=== PATIENT | female | born 1950 | race Caucasian/White ===

== ENCOUNTER → 2020-03-09 10:17 | Outpatient (BNVA) | payer OTHER, MEDICARE, SELFPAY | PROVIDERS: PCP Internal Medicine; Referring Provider Internal Medicine; Visit Provider Physician Assistant | DX: Z01.818 Encounter for other preprocedural examination (principal) | CPT/HCPCS: 99203 ==

== ENCOUNTER 2021-11-30 16:09 | Outpatient (REF) | payer MEDICARE, MEDICAID, SELFPAY ==
--- NOTE | ~2021-11-30 | US_ITS ---
EXAMINATION: US VENOUS ULTRASOUND WITH DOPPLER LOWER EXTREMITY, LEFT CLINICAL INFORMATION: Swelling COMPARISON: None TECHNIQUE: Ultrasound of the deep veins is performed from the hip to the calf with compression sonography and color and pulse Doppler assessment. Spectral analysis with color-flow imaging is performed. FINDINGS: There is normal venous compression and respiratory variation and augmented flow. The visualized common femoral vein, superficial femoral vein, profunda femoral vein, popliteal vein are patent. The calf veins are not well visualized. There is no Barnett's cyst. US/US venous duplex LE LT IMPRESSION: No evidence of DVT. Calf veins not well visualized.
== END 2021-11-30 16:10 | disposition home or self-care (01) ==
LOC: HO.US 16:09
PROVIDERS: PCP Internal Medicine; Visit Provider Internal Medicine
DX: R60.0 Localized edema (principal)
CPT/HCPCS: 93971

== ENCOUNTER → 2022-08-14 09:02 | Outpatient (BNVA) | payer MEDICARE, MEDICAID, SELFPAY | PROVIDERS: PCP Internal Medicine; Visit Provider Internal Medicine Rheumatology | DX: M79.89 Other specified soft tissue disorders (principal); M17.0 Bilateral primary osteoarthritis of knee; I87.2 Venous insufficiency (chronic) (peripheral) | CPT/HCPCS: 99202 ==

== ENCOUNTER 2022-09-26 13:23 | Outpatient (REF) | payer MEDICARE, MEDICAID, SELFPAY ==
--- NOTE | ~2022-09-26 | US_ITS ---
EXAMINATION: US VENOUS WITH DOPPLER UPPER EXTREMITY, LEFT CLINICAL INFORMATION: Edema and swelling. COMPARISON: None available. TECHNIQUE: Ultrasound of the upper extremity is performed using compression sonography and color and pulse Doppler flow with assessment of augmentation of flow. There is also imaging and Doppler assessment of the jugular and subclavian veins. Spectral analysis with color-flow imaging is performed. FINDINGS: Respiratory variation, normal compression, and augmented flow are noted throughout the upper extremity including the axillary, brachial, cubital, and radial and ulnar veins. There is normal flow in the internal jugular and subclavian veins. There is no visible deep or superficial thrombophlebitis. If the patient's symptoms progress, a followup ultrasound in 5 -7 days might be of value to exclude proximal propagation from a nonvisualized distal arm vein. US/US venous duplex UE LT IMPRESSION: No DVT demonstrated in the left upper extremity
== END 2022-09-26 13:24 | disposition home or self-care (01) ==
LOC: HO.US 13:23
PROVIDERS: PCP Family Medicine; Visit Provider Family Medicine
DX: R60.0 Localized edema (principal); M79.602 Pain in left arm; I89.0 Lymphedema, not elsewhere classified
CPT/HCPCS: 93971; 99202

== ENCOUNTER 2023-02-05 | Outpatient (REF) | payer MEDICARE, MEDICAID, SELFPAY | END 2023-02-05 00:01 | disposition home or self-care (01) | LOC: HO.HHCLNP | PROVIDERS: Visit Provider Family Medicine | DX: N30.00 Acute cystitis without hematuria (principal) | CPT/HCPCS: 87086; 87088; 87186 ==

== ENCOUNTER 2023-02-12 12:54 | Outpatient (REF) | payer MEDICARE, MEDICAID, SELFPAY | END 2023-02-12 12:55 | disposition home or self-care (01) | LOC: HO.HHCLNP 12:54 | PROVIDERS: Visit Provider Internal Medicine | DX: R39.9 Unspecified symptoms and signs involving the genitourinary system (principal) | CPT/HCPCS: 87086 ==

== ENCOUNTER 2023-02-19 | Outpatient (REF) | payer MEDICARE, MEDICAID, SELFPAY | END 2023-02-19 00:01 | disposition home or self-care (01) | LOC: HO.LNP | PROVIDERS: Visit Provider Internal Medicine | DX: R39.9 Unspecified symptoms and signs involving the genitourinary system (principal) | CPT/HCPCS: 87086; 87088; 87186 ==

== ENCOUNTER 2023-09-19 13:02 | Outpatient (REF) | payer MEDICARE, MEDICAID, SELFPAY ==
[2023-09-19 16:11] LABS: Hematocrit 40.4 % (37.0-47.0); Hemoglobin 12.7 g/dl (12.0-16.0); Mean Corpuscular HGB Conc 31.4 g/dl (31.0-35.0); Mean Corpuscular Hemoglobin 27.7 pg (27.0-33.0); Platelet Count 248 X10*3/uL (160-400); Red Blood Count 4.59 X10*6/uL (4.20-5.50); Red Cell Distribution Width 15.2 % (11.0-16.0); White Blood Count 10.4 X10*3/uL (4.8-10.8)
[2023-09-19 16:26] LABS: Estimated Average Glucose 123 mg/dL; Hemoglobin A1c % 5.9 % (<6.0)
[2023-09-19 16:29] LABS: Alanine Aminotransferase 16 U/L (0-31); Albumin Level 3.9 g/dL (3.5-5.0); Alkaline Phosphatase 94 U/L (39-117); Anion Gap 13 (12-20); Aspartate Amino Transferase 19 U/L (5-31); Bilirubin Direct 0.2 mg/dL (0.0-0.5); Bilirubin Total 0.5 mg/dL (0.0-1.0); Blood Urea Nitrogen 18 mg/dL (9-16); Calcium 10.4 mg/dL (8.4-10.2); Carbon Dioxide 28 mmol/L (22-29); Chloride 106 mmol/L (96-108); Cholesterol 144 mg/dL (<200); Estimated Glomerular Filt Rate 41; Glucose Random 99 mg/dL (60-115); HDL Cholesterol 37 mg/dL (>40); LDL Cholesterol Calculated 81 mg/dL (<100); Potassium 4.9 mmol/L (3.3-5.1); Sodium 142 mmol/L (135-145); Total Protein 7.5 g/dL (6.5-8.0); Triglycerides 133 mg/dL (<150)
[2023-09-19 16:47] LABS: Free T4 (Free Thyroxine) 0.84 ng/dL (0.71-1.85); Thyroid Stimulating Hormone 4.74 uIU/mL (0.32-4.0); Vitamin D 25-OH Total 11.5 ng/mL (>30)
[2023-09-20 05:38] LABS: HBS Num1 3.74 mIU/mL (0-7.99); HBsAGNum1 0.32 S/CO (0.00-0.99); HIV AB/AG Nonreactive (Nonreactive); HIV Num 1 0.05 S/CO (0.00-0.99); Hepatitis B Surface Antigen Negative (Negative); ~HepC Num1 0.19 S/CO (0.00-0.79); ~Hepatitis B Surface Antibody NONREACTIVE (Nonreactive); ~Hepatitis C Antibody Nonreactive (Nonreactive)
[2023-09-20 05:44] LABS: Hepatitis A Antibody IgG REACTIVE (Nonreactive); ~Hepatitis A Antibody IgG 9.92 S/CO (0.00-0.99)
[2023-09-20 13:43] LABS: RPR Rapid Plasma Reagin NON-REACTIVE (NON-REACTIVE)
== END 2023-09-19 13:03 | disposition home or self-care (01) ==
LOC: HO.HHCL 13:02
PROVIDERS: Visit Provider Family Medicine
DX: I10 Essential (primary) hypertension (principal); E78.49 Other hyperlipidemia; Z11.3 Encounter for screening for infections with a predominantly sexual mode of transmission; N18.30 Chronic kidney disease, stage 3 unspecified; R79.9 Abnormal finding of blood chemistry, unspecified; Z11.59 Encounter for screening for other viral diseases; Z72.89 Other problems related to lifestyle
CPT/HCPCS: 36415; 80048; 80061; 80076; 82306; 83036; 84439; 84443; 85027; 86592; 86706; 86708; 86803; 87086; 87340; 87389

== ENCOUNTER 2023-09-26 08:38 | Outpatient (REF) | payer MEDICARE, MEDICAID, SELFPAY ==
[2023-09-26 12:01] LABS: Appearance Urine Cloudy; Color Urine Yellow; Glucose Urine UA Negative (Negative); Leukocyte Esterase Urine Large (3+) (Negative); Nitrite Urine Negative (Negative); UMIC TRIGGER UACC YES; Urine Blood Small (1+) (Negative); Urine Ketones Negative (Negative); Urine Protein Negative (Neg-Trace)
[2023-09-26 12:22] LABS: Bacteria Urine 2+ (None Seen); Hyaline Casts Urine 0-2 /LPF (0-2); RBC Urine 0-2 /HPF (0-2); Squamous Epithelial Cell Urine 0-2 /HPF (0-2); UACC Culture Trigger YES; WBC Urine 21-50 /HPF (0-5)
[2023-09-26 12:23] LABS: Anion Gap 13 (12-20); Blood Urea Nitrogen 12 mg/dL (9-16); Calcium 9.7 mg/dL (8.4-10.2); Carbon Dioxide 24 mmol/L (22-29); Chloride 108 mmol/L (96-108); Estimated Glomerular Filt Rate 55; Glucose Random 101 mg/dL (60-115); Potassium 4.2 mmol/L (3.3-5.1); Sodium 141 mmol/L (135-145)
[2023-09-26 12:46] LABS: Free T4 (Free Thyroxine) 0.89 ng/dL (0.71-1.85); Thyroid Stimulating Hormone 4.58 uIU/mL (0.32-4.0)
== END 2023-09-26 08:39 | disposition home or self-care (01) ==
LOC: HO.HHCL 08:38
PROVIDERS: Visit Provider Family Medicine
DX: I10 Essential (primary) hypertension (principal)
CPT/HCPCS: 36415; 80048; 81001; 81003; 84439; 84443; 87086; 87088; 87186

== ENCOUNTER 2024-01-17 17:49 | Outpatient (REF) | payer MEDICARE, MEDICAID, SELFPAY ==
[2024-01-17 18:14] LABS: Appearance Urine Turbid; Color Urine Yellow; Glucose Urine UA Negative (Negative); Leukocyte Esterase Urine Large (3+) (Negative); Nitrite Urine Positive (Negative); PH 6.5 (5.0-9.0); UMIC TRIGGER UACC YES; Urine Blood Trace (Negative); Urine Ketones Negative (Negative); Urine Protein Trace mg/dL (Neg-Trace)
[2024-01-17 18:20] LABS: Bacteria Urine 2+ (None Seen); Hyaline Casts Urine 0-2 /LPF (0-2); Squamous Epithelial Cell Urine >20 /HPF (0-2); UACC Culture Trigger YES; WBC Urine >50 /HPF (0-5)
== END 2024-01-17 17:50 | disposition home or self-care (01) ==
LOC: HO.HHCLNP 17:49
PROVIDERS: Visit Provider Student in an Organized Health Care Education/Training Program
DX: R39.9 Unspecified symptoms and signs involving the genitourinary system (principal)
CPT/HCPCS: 81001; 87086; 87088; 87186

== ENCOUNTER 2024-02-13 11:38 | Outpatient (REF) | payer MEDICARE, MEDICAID, SELFPAY ==
[2024-02-13 14:07] LABS: Anion Gap 14 (12-20); Blood Urea Nitrogen 17 mg/dL (9-16); Calcium 11.1 mg/dL (8.4-10.2); Carbon Dioxide 25 mmol/L (22-29); Chloride 107 mmol/L (96-108); Estimated Glomerular Filt Rate 40; Glucose Random 111 mg/dL (60-115); Sodium 142 mmol/L (135-145)
== END 2024-02-13 11:39 | disposition home or self-care (01) ==
LOC: HO.HHCL 11:38
PROVIDERS: Visit Provider Internal Medicine
DX: N39.0 Urinary tract infection, site not specified (principal); E83.52 Hypercalcemia
CPT/HCPCS: 36415; 80048; 87086; 87088; 87186

== ENCOUNTER 2025-01-05 10:00 | Outpatient (REF) | payer MEDICARE, MEDICAID, SELFPAY ==
--- OUTSIDE RECORDS SUMMARY | 2025-01-05 16:35 | XMS_ITS | Clinical Summary ---
Author Organization [facility] Address [address] [address] Phone Care Team Providers Care Spout Tender Name Role Phone Vaibhav Sandy Primary Care Provider Allergies Active Allergy Reactions Criticality Noted Date Comments Bupropion 07/24/2022 Other reaction(s): Irritable Other reaction(s): Irritable Penicillins 04/10/2016 STates took last time for UTI and did not have a reaction. Sulfa (Sulfonamide Antibiotics) 07/24/2022 Medications triamcinolone acetonide 0.05 % Oint Apply topically every 12 (twelve) hours. 2 Active triamcinolone acetonide 0.1 % cream APPLY A THIN LAYER TO AFFECTED AREA(S) EVERY DAY FOR UP TO 1-2 WEEKS 2 Active traMADoL (ULTRAM) 50 mg tablet TAKE 1 TABLET BY MOUTH EVERY TWELVE HOURS NEEDED FOR SEVERE PAIN 3 Active tiZANidine (ZANAFLEX) 2 MG tablet TAKE 1 TABLET BY MOUTH EVERY 8 HOURS NEEDED FOR MUSCLE SPASMS DO NOT EXCEED 3 TABLETS IN 24 HOURS 3 Active sulfamethoxazol e-trimethoprim (BACTRIM DS) 800-160 mg per tablet Take 1 tablet by mouth 2 (two) times a day. 3 Active sucralfate (CARAFATE) 1 gram tablet TAKE 1 TABLET BY MOUTH FOUR TIMES DAILY BEFORE BREAKFAST, BEFORE LUNCH, BEFORE SUPPER, AND AT BEDTIME. 3 Active simethicone (MYLICON) 80 mg chewable tablet Take 80 mg by mouth 3 (three) times a day as needed. Active polyethylene glycol 3350 (MIRALAX ORAL) Take 17 g by mouth. 3 Active nystatin (NYSTOP) powder Apply topically. Active metoprolol succinate (TOPROL-XL) 50 MG 24 hr tablet Take 1 tablet by mouth daily. 3 Active amLODIPine (NORVASC) 5 MG tablet Take 5 mg by mouth. 3 Active atorvastatin (LIPITOR) 80 MG tablet Take 80 mg by mouth nightly at bedtime. 3 Active atorvastatin (LIPITOR) 80 MG tablet Take 1 tablet by mouth nightly at bedtime. 3 Active cyanocobalamin, vitamin B-12, 1000 MCG tablet Take 1 tablet by mouth. 2 Active econazole nitrate 1 % cream Apply topically every 12 (twelve) hours. 2 Active fluocinolone (DERMA-SMOOTHE) 0.01 % external oil Apply topically. 2 Active ketoconazole (NIZORAL) 2 % shampoo 2 Active gabapentin (NEURONTIN) 300 MG capsule Take 300 mg by mouth 3 (three) times a day. 3 Active lisinopril (PRINIVIL,ZESTR IL) 10 MG tablet Take 10 mg by mouth every morning. 3 Active lisinopril (PRINIVIL,ZESTR IL) 10 MG tablet Take 10 mg by mouth. 3 Active levoFLOXacin (LEVAQUIN) 500 MG tablet Take 1 tablet (500 mg total) by mouth daily. 3 tablet 4 Active Additional Information Patient not taking.Reported on 01/09/2024 levothyroxine (SYNTHROID,LEVO THROID) 25 MCG tablet Take 25 mcg by mouth. 4 Active rosuvastatin (CRESTOR) 40 MG tablet Take 40 mg by mouth daily. Active naloxone (NARCAN) 4 mg/actuation nasal spray 4 mg by Nasal route. 4 Active Active Problems Problem Noted Date Diagnosed Date Severe obesity 06/15/2023 History of osteomyelitis 09/26/2022 Psoriasis 08/15/2022 Osteoarthritis 08/15/2022 Obesity (BMI 30-39.9) 08/15/2022 Nephrolithiasis 08/15/2022 Hyperlipidemia 07/20/2022 Prediabetes 07/11/2018 Stage 3 chronic kidney disease 07/11/2018 Essential hypertension 03/07/2017 Chronic pain disorder 03/07/2017 History of depression 07/06/2010 Venous insufficiency (chronic) (peripheral) 05/2000 Immunizations Immunization Administration Dates Next Due DT 06/06/2010 INFLUENZA, SPLIT VIRUS, TRIVALENT PF ,03/02/2018,03/06/2015,04/03 INFLUENZA, SPLIT VIRUS, TRIV ALENT W/ PRESERVATIVE IM 04/13/2021,02/14/2020,02/25/2019,03/02,02/06/2017,04/10/2016,03/06/2015 ,04/03/2014,05/25/2013,02/06/2012,01/2012,06/06/2010,06/06/2010 Influenza High-Dose Trivalen t Preservative Free IM 02/25/2019 Influenza Quadrivalent Adjuv anted Preservative Free IM 04/13/2021 Influenza Quadrivalent MDCK Preservative Free IM 02/06/2017 Influenza Quadrivalent w/ Pr eservative IM 04/10/2016 Influenza, whole 05/06/2007 Pneumococcal conjugate PCV13 02/14/2020 Pneumococcal polysaccharide PPSV23 04/13/2021 Tdap 03/10/2015 Zoster live 12/16/2012 Social History Tobacco Use Types Packs/Day Years Used Date Smoking Tobacco: Never Smokeless Tobacco: Never Tobacco Cessation:Counseling Given: Not Answered Education Answer Date Recorded Are you interested in more education? Not on lola e 03/19/2023 Are you concerned about learning? Not on file 03/19/2023 No 03/19/2023 No 03/19/2023 Digital Access Answer Date Recorded No 03/19/2023 No 03/19/2023 Reliable internet access at home? Not on file 03/19/2023 Device with a working camera? Not on file Comments Unknown Sex and Gender Information Value Date Recorded Sex Assigned at Not on file Legal Sex Female 10:00 PM EDT Gender Identity Not on file Sexual Orientation Not on file Last Filed Vital Signs Vital Sign Reading Time Taken Comments Blood Pressure 176/72 01/09/2024 1:24 PM EDT Pulse 53 01/09/2024 1:24 PM EDT Temperature 36.6 C (97.8 F) 01/09/2024 1:24 PM EDT Respiratory Rate 18 01/09/2024 1:24 PM EDT Oxygen Saturation 97% 01/09/2024 1:24 PM EDT Inhaled Oxygen Concentration - - Weight 113.4 kg (250 lb) 06/15/2023 9:06 AM EST per pt Height - - Body Mass Index - - Plan of Treatment Health Maintenance Due Date Last Done Comments CREATININE LEVEL 1951 POTASSIUM LEVEL 1951 DEPRESSION SCREENING 1963 HEPATITIS C SCREENING 1969 MAMMOGRAM 1991 COLOGUARD 1996 COLONOSCOPY 1996 COLORECTAL CANCER SCREENING 1996 FIT TEST 1996 FOBT 1996 SIGMOIDOSCOPY 1996 VIRTUAL COLONOSCOPY 1996 ZOSTER VACCINES (2 of 3) 02/10/2013 12/16/2012 OSTEOPOROSIS SCREENING INITI AL (ONE-TIME) 2016 COVID-19 VACCINE (3 - 2023-2 5 season) 2024 05/27/2021, 08/11/2020 BLOOD PRESSURE 07/11/2024 01/09/2024 Adult Td,Tdap Booster 03/10/2025 03/10/2015 RSV VACCINE (1 - 1-dose 75+ series) 2026 LIPID PANEL 09/18/2028 09/19/2023 PNEUMOCOCCAL VACCINES (50+ years) Completed 04/13/2021, 02/14/2020 SMOKING STATUS SCREENING (On ce After 26 Yrs) Completed 06/15/2023 HEPATITIS A VACCINES Aged Out No long er eligible based on patient's age to complete this topic HIB VACCINES Aged Out No longer eligi ble based on patient's age to complete this topic MENINGOCOCCAL VACCINES (ACWY) Aged Out No longer eligible based on patient's age to complete this topic MENINGOCOCCAL VACCINES (B) Aged Out N o longer eligible based on patient's age to complete this topic Medical Devices Not on file Insurance [id number] [place] [phone] MEDICARE PART A & [place]ALTH MEDICARE PART A & [place] MED[place] PART A & B MEDICARE PART A & B HEALTH Care Teams Spout Tender Relationship Specialty Start Date End Date Sandy Esposito DO [address] [place] [phone] PCP - General Family Medicine 03/19/23 Additional Source Comments The information contained in this document represents components of the legal health record. It is not the complete legal health record.[facility]
--- OUTSIDE RECORDS SUMMARY | 2025-01-05 16:35 | XMS_ITS | Encounter Summary ---
Author Organization [employer] Address [address] [facility] 7[address] [place] [address] Care Team Providers Care Yarn Spinner Name Role Phone Cindy Cabrera Primary Care Provider [phone] Sandy Esposito DO Primary Care Provider [phone] Reason for Visit * Reason Comments Med Refill Encounter Details Date Type Department Care Team (Late Contact Info) Description 06/18/2022 Telephone [facility] [address] [place] [phone] [place] [facility] [address] [place], [place] [phone] Med Refill Social History Tobacco Use Types Packs/Day Years Used Date Smoking Tobacco: Never Assessed Comments Unknown Sex and Gender Information Value Date Recorded Sex Assigned at Female 03/27/2022 10:30 AM EDT Legal Sex Female 10:30 AM EDT Gender Identity Female 03/27/2022 10:30 AM EDT Sexual Orientation Straight 03/27/2022 10 :30 AM EDT documented as of this encounter Plan of Treatment Upcoming Encounters Date Type Department Care Team (Late Contact Info) Description 02/06/2025 11:00 AM EDT Telemedicine [facility] [address] [place] [address] [phone] Polina Tate RN documented as of this encounter Visit Diagnoses Diagnosis Right hip pain- Primary Pain in joint, pelvic region and thigh Rash Rash and other nonspecific skin eruption documented in this encounter Care Teams Yarn Spinner Relationship Specialty Start Date End Date Cindy Cabrera FNP [address] [place] [phone] PCP - General Family Medicine 06/14/22 08/14/22 Sandy Esposito DO [address] [place] [address] PCP - General Family Medicine 08/15/22 documented as of this encounter
[2025-01-05 16:50] LABS: Appearance Urine Cloudy; Glucose Urine UA Negative (Negative); PH 7.0 (5.0-9.0); Specific Gravity - Urine 1.010 (1.005-1.025); UMIC TRIGGER UACC YES
[2025-01-05 17:06] LABS: UACC Culture Trigger YES
== END 2025-01-05 10:01 | disposition home or self-care (01) ==
LOC: HO.HHCLNP 10:00
PROVIDERS: Visit Provider Family Medicine
DX: R39.9 Unspecified symptoms and signs involving the genitourinary system (principal)
CPT/HCPCS: 81001; 87086; 87088; 87186

== ENCOUNTER 2025-04-21 10:25 | Outpatient (REF) | payer MEDICARE, MEDICAID, SELFPAY ==
--- OUTSIDE RECORDS SUMMARY | 2025-04-21 09:20 | XMS_ITS | Encounter Summary ---
Author Organization [employer] Address [address] [facility] [address] [address] 7[address] [place] [address] Care Team Providers Care Eviction Specialist Name Role Phone Sandy Esposito DO Primary Care Provider [phone] Reason for Visit * Reason Comments UTI Encounter Details Date Type Department Care Team ([facility] st Contact Info) Description 04/21/2025 9:20 AM EST [address] [facility] [address] [place] [address] Kendall Harp MD [address] [place] [address] Dysuria; Nasal congestion; Essential hypertension; Cough in adult patient Social History Tobacco Use Types Packs/Day Years Used Date Smoking Tobacco: Former Cigarettes Passive Smoke Exposure: Past Smokeless Tobacco: Never Tobacco Cessation:Counseling Given: Not Answered Alcohol Use Standard Drinks/Week Comments Never 0 (1 standard drink = 0.6 oz pur e alcohol) Depression Answer Date Recorded Patient Health Questionnaire-9 Score 2 12/18/2023 Patient Health Questionnaire-9 Score 2 12/18/2023 Last PHQ-9: Questionnaire Data Not on file 0 12/18/2023 Housing Stability Answer Date Recorded What is your housing situation today? I have mercedes jacob 03/03/[address] you li ve. Do you have problems with any of the following? None of the above 03/03/2025 Food Insecurity Answer Date Recorded Within the past 12 months, y ou worried that your food would run out before you got money to buy more: Never True 03/03/2025 Within the past 12 months,th e food you bought just didn't last and you didn't have enough money to get more: Never True 11/2024 Transportation Answer Date Recorded In the past 12 months, has l ack of transportation kept you from medical appts, meetings, work or from getting things needed for daily living? No 03/03/2025 Utilities Answer Date Recorded In the past 12 months, has t he electric, gas, oil or water company threatened to shut off services in your home? No 03/03/2025 Depression Answer Date Recorded Patient Health Questionnaire-2 Score 0 12/18/2023 Internet Access Answer Date Recorded Internet Access Q1 Yes 03/03/2025 Internet Access Q2 Not on file 03/03/2025 Comments Unknown Sex and Gender Information Value Date Recorded Sex Assigned at Female 03/27/2022 10:30 AM EDT Legal Sex Female 10:30 AM EDT Gender Identity Female 03/27/2022 10:30 AM EDT Sexual Orientation Straight 03/27/2022 10 :30 AM EDT documented as of this encounter Last Filed Vital Signs Vital Sign Reading Time Taken Comments Blood Pressure 176/83 04/21/2025 9:14 AM EST Pulse 87 04/21/2025 9:14 AM EST Temperature 36.7 C (98 F) 04/21/2025 9:14 AM EST Respiratory Rate 20 04/21/2025 9:14 AM EST Oxygen Saturation 97% 04/21/2025 9:14 AM EST Inhaled Oxygen Concentration - - Weight 103 kg (228 lb) 04/21/2025 9:14 AM EST Height - - Body Mass Index 40.39 02/13/2024 10:35 AM EDT documented in this encounter Progress Notes * Kendall Harp MD - 04/21/2025 8:40 AM EST If yeah Subjective Patient ID: Terrie Barakat is a 74 y.o. female. HPI Yesterday Terrie had onset of suprapubic pressure, urinary frequency, which Denies fever, chills, n/v, vaginal discharge, abdominal or flank pain. Has history of recurrent UTIs. Last 3 positive urine cultures over the past year grew Klebsiella aerogenes, sensitive to Bactrim. States has been seen by urologist in the past for kidney stones and recurrent UTIs. Also has 3 week h/o nasal congestion, sneezing. No SOB, cough. Using Flonase with no relief. Lives alone. Granddaughter is her WORM PICKER, is with her today. Former smoker. Patient Active Problem List Diagnosis Date Noted Long-term current use of opiate analgesic 10/17/2024 Recurrent UTI 02/13/2024 Lymphedema 09/19/2023 History of sepsis 09/19/2023 History of osteomyelitis 09/26/2022 Psoriasis 08/15/2022 Chronic low back pain 08/15/2022 Vitamin B12 deficiency 08/15/2022 Osteoarthritis 08/15/2022 Stage 3 chronic kidney disease ([facility] ([facility]) 07/11/2018 Hyperlipidemia 07/11/2018 Prediabetes 07/11/2018 Microalbuminuria 07/11/2018 Tobacco dependence 06/06/2018 Chronic pain syndrome 03/07/2017 Essential hypertension 03/07/2017 Venous insufficiency (chronic) (peripheral) 05/28/2000 Nephrolithiasis 08/15/2022 BMI 40.0-44.9, adult ([facility] ([facility]) 08/15/2022 Varicose veins 08/15/2022 History of depression 07/06/2010 The following portions of the chart were reviewed this encounter and updated as appropriate: Review of Systems Constitutional: Negative for fever. HENT: Positive for rhinorrhea and sneezing. Respiratory: Negative for shortness of breath. Cardiovascular: Negative for chest pain. Gastrointestinal: Negative for abdominal pain. Genitourinary: Positive for dysuria and urgency. Negative for flank pain and frequency. Skin: Negative for rash. Neurological: Negative for headaches. Objective Physical Exam Constitutional: Appearance: Normal appearance. HENT: Right Ear: Tympanic membrane, ear canal and external ear normal. Left Ear: Tympanic membrane, ear canal and external ear normal. Nose: Nose normal. Mouth/Throat: Mouth: Mucous membranes are moist. Pharynx: Oropharynx is clear. Eyes: Conjunctiva/sclera: Conjunctivae normal. Pupils: Pupils are equal, round, and reactive to light. Cardiovascular: Rate and Rhythm: Normal rate and regular rhythm. Heart sounds: No murmur heard. Pulmonary: Effort: Pulmonary effort is normal. Breath sounds: Normal breath sounds. Abdominal: Tenderness: There is no right CVA tenderness or left CVA tenderness. Musculoskeletal: General: Normal range of motion. Cervical back: No tenderness. Skin: Findings: No rash. Neurological: Mental Status: She is alert. Gait: Gait is intact. Psychiatric: Mood and Affect: Mood normal. Behavior: Behavior normal. Procedures Assessment/Plan Diagnoses and all orders for this visit: Dysuria Urine C&S pending. Prescribed Bactrim DS. Return to clinic if not improving. Nasal congestion Negative rapid Covid and Influenza tests. Refilled Zyrtec. Prescribed azelastine nasal spray. Return to clinic if not improving Essential hypertension Has home BP monitor. Reviewed BP parameters, given written BP log that includes BP parameters, to keep daily. Call if BP readings are elevated. - Influenza B (ID NOW Rapid Molecular) - Influenza A (ID NOW Rapid Molecular) - POCT Rapid COVID Ag Other orders - cetirizine (ZyrTEC) 10 MG tablet; Take 1 tablet (10 mg) by mouth Once per day. - azelastine (Astelin) 0.1 % nasal spray; Administer 2 sprays into each nostril 2 times daily. Use in each nostril as directed - sulfamethoxazole-trimethoprim (Bactrim DS) 800-160 MG tablet; Take 1 tablet by mouth 2 times daily for 5 days. documented in this encounter Plan of Treatment Scheduled Orders Name Type Priority Associated Diagnoses Orde r Schedule Culture, Urine, Routine Microbiology Routine Dysuria Ordered: 04/21/2025 documented as of this encounter Procedures Procedure Name Priority Date/Time Associated Diagnosis Comments POCT URINALYSIS DIPSTICK Routine 04/21/2025 9:58 AM EST Dysuria POCT INFLUENZA B (ID NOW RAPID MOLECULAR) Routine 04/21/2025 9:44 AM EST Cough in adult patient POCT INFLUENZA A (ID NOW RAPID MOLECULAR) Routine 04/21/2025 9:43 AM EST Cough in adult patient POCT RAPID COVID ANTIGEN Routine 04/21/2025 9:42 AM EST Cough in adult patient documented in this encounter Results * (ABNORMAL) POCT urinalysis dipstick manually resulted (CPT 86782) (04/21/2025 9:58 AM EST) [facility] Color, UA Yellow Clarity, UA Clear Glucose, UA Negative Bilirubin, UA Negative Ketones, UA Negative Spec Grav, UA 1.010 Blood, UA Positive(A) Negative, None Detected pH, UA 6.0 Protein, UA Trace Comment:30mg Urobilinogen, UA 0.2 Leukocytes, UA Many(A) Negative, Rare, Trace, 1+ (17), 2+ (35), 3+ (70) Nitrite, UA Positive(A) Negative, None Detected Appearance, UA ok Urine (Urine, Random) 04/21/2025 9:58 AM EST us Kendall Harp MD POINT OF CARE TEST ENTER/EDIT OR DERABLES Final Result * Influenza B (ID NOW Rapid Molecular) (04/21/2025 9:44 AM EST) [facility] Influenza B Negative Negative, Indeterminate [facility] Swab 04/21/2025 9:44 AM EST us Kendall Harp MD POINT OF CARE TEST ENTER/EDIT OR DERABLES Final Result Performing Organization Address [facility]/ZIP Co de Phone Number [facility] [address] [place] [phone] * Influenza A (ID NOW Rapid Molecular) (04/21/2025 9:43 AM EST) [facility] Influenza A Negative Negative, Indeterminate [facility] Swab 04/21/2025 9:43 AM EST us Kendall Harp MD POINT OF CARE TEST ENTER/EDIT OR DERABLES Final Result Performing Organization Address [facility] Co de Phone Number [facility] [address] [place] [phone] * POCT Rapid COVID Ag (04/21/2025 9:42 AM EST) [facility] Rapid COVID Ag Negative Swab 04/21/2025 9:42 AM EST Kendall Harp MD POINT OF CARE TEST ENTER/EDIT OR DERABLES Final Result documented in this encounter Visit Diagnoses Diagnosis Dysuria Nasal congestion Other diseases of nasal cavity and sinuses Essential hypertension Unspecified essential hypertension Cough in adult patient documented in this encounter Additional Health Concerns Assessment Noted Time PHQ-9 Depression Total Score: 2 12/18/19 11:47 AM EDT documented as of this encounter Care Teams Eviction Specialist Relationship Specialty Start Date End Date Sandy Esposito DO [address] [place] [address] PCP - General Family Medicine 08/15/22 documented as of this encounter
--- OUTSIDE RECORDS SUMMARY | 2025-04-21 19:24 | XMS_ITS | Encounter Summary ---
Author Organization [employer] Address [address] [place] [address] Care Team Providers Care Mushroom Cutter Name Role Phone Sandy Esposito DO Primary Care Provider [phone] Reason for Visit * Reason Onset Date Comments Appointment Request 11/13/2023 Encounter Details Date Type Department Care Team ([facility] st Contact Info) Description 11/13/2023 Telephone [facility] [address] [place], [place] [phone] Sandy Esposito DO [address] [place], [place] [phone] Appointment Request Social History Tobacco Use Types Packs/Day Years Used Date Smoking Tobacco: Former Cigarettes Passive Smoke Exposure: Past Smokeless Tobacco: Never Alcohol Use Standard Drinks/Week Comments Never 0 (1 standard drink = 0.6 oz pur e alcohol) Depression Answer Date Recorded Patient Health Questionnaire-9 Score 0 08/15/2022 Housing Stability Answer Date Recorded What is your housing situation today? I have mercedes jacob 03/20/[address] you li ve. Do you have problems with any of the following? None of the above 03/20/2023 Food Insecurity Answer Date Recorded Within the past 12 months, y ou worried that your food would run out before you got money to buy more: Never True 03/20/2023 Within the past 12 months,th e food you bought just didn't last and you didn't have enough money to get more: Never True Transportation Answer Date Recorded In the past 12 months, has l ack of transportation kept you from medical appts, meetings, work or from getting things needed for daily living? No 03/20/2023 Utilities Answer Date Recorded In the past 12 months, has t he electric, gas, oil or water company threatened to shut off services in your home? No 03/20/2023 Depression Answer Date Recorded Patient Health Questionnaire-2 Score 0 08/15/2022 Comments Unknown Sex and Gender Information Value Date Recorded Sex Assigned at Female 03/27/2022 10:30 AM EDT Legal Sex Female 10:30 AM EDT Gender Identity Female 03/27/2022 10:30 AM EDT Sexual Orientation Straight 03/27/2022 10 :30 AM EDT documented as of this encounter Miscellaneous Notes * Telephone Encounter - Namrata Burton - 11/13/2023 9:13 AM EDT Tc from pt would like to r/s 11/20/23 appt . documented in this encounter Plan of Treatment Not on file documented as of this encounter Visit Diagnoses Not on filedocumented in this encounter Additional Health Concerns Assessment Noted Time PHQ-9 Depression Total Score: 0 08/16/19 9:19 AM EDT documented as of this encounter Care Teams Mushroom Cutter Relationship Specialty Start Date End Date Sandy Esposito DO [address] [place] [phone] PCP - General Family Medicine 08/15/22 documented as of this encounter
--- OUTSIDE RECORDS SUMMARY | 2025-04-21 19:24 | XMS_ITS | Encounter Summary ---
Author Organization [employer] Address [address] [facility] 7t [place] [address] Care Team Providers Care Adjunct Faculty Instructor Name Role Phone Sandy Esposito DO Primary Care Provider [phone] Reason for Visit * Reason Onset Date Comments Med Refill 01/02/2023 Encounter Details Date Type Department Care Team (Late st Contact Info) Description 01/02/2023 Telephone [facility] MEDICINE [address] [place] [address] Sandy Esposito DO [address] [place], [place] [phone] Med Refill Social History Tobacco Use Types Packs/Day Years Used Date Smoking Tobacco: Former Cigarettes Passive Smoke Exposure: Current Smokeless Tobacco: Never Alcohol Use Standard Drinks/Week Comments Never 0 (1 standard drink = 0.6 oz pur e alcohol) Depression Answer Date Recorded Patient Health Questionnaire-9 Score 0 08/15/2022 Depression Answer Date Recorded Patient Health Questionnaire-2 Score 0 08/15/2022 Comments Unknown Sex and Gender Information Value Date Recorded Sex Assigned at Female 03/27/2022 10:30 AM EDT Legal Sex Female 10:30 AM EDT Gender Identity Female 03/27/2022 10:30 AM EDT Sexual Orientation Straight 03/27/2022 10 :30 AM EDT documented as of this encounter Miscellaneous Notes * Telephone Encounter - Sophia Matthews - 01/02/2023 10:50 AM EDT Tc from pt requesting medication refill on traMADol (Ultram) 50 MG tablet documented in this encounter Plan of Treatment Not on file documented as of this encounter Visit Diagnoses Not on filedocumented in this encounter Additional Health Concerns Assessment Noted Time PHQ-9 Depression Total Score: 0 08/16/19 9:19 AM EDT documented as of this encounter Care Teams Adjunct Faculty Instructor Relationship Specialty Start Date End Date Sandy Esposito DO [address] [place] [address] PCP - General Family Medicine 08/15/22 documented as of this encounter
--- OUTSIDE RECORDS SUMMARY | 2025-04-21 19:24 | XMS_ITS | Encounter Summary ---
Author Organization [facility] Address [address] [facility] [address] [place] [address] Phone Care Team Providers Care Frankfurter Inspector Name Role Phone Sandy Esposito DO Primary Care Provider Encounter Details Date Type Department Care Team (Latest Contact Info) Description 03/11/2025 Transcribe Orders Virtual Department [address] [place] [address] Sandy Esposito DO [address] [place], [place] [phone] Pain in both knees, unspecified chronicity (Primary Dx) Social History Tobacco Use Types Packs/Day Years Used Date Smoking Tobacco: Never Smokeless Tobacco: Never Education Answer Date Recorded Are you interested [...] on file Sexual Orientation Not on file documented as of this encounter Plan of Treatment Not on file documented as of this encounter Results * XR KNEE 4 OR MORE VIEWS (BILATERAL) (03/13/2025 2:57 PM EDT) Anatomical Region Laterality Modality Knee Bilateral, Knee Right, Knee Left Computed Radiography 03/15/2025 8:54 AM EDT Impressions 03/15/2025 9:00 AM EDT No fracture or dislocation. Narrative 03/15/2025 9:00 AM EDT XR KNEE 4 OR MORE VIEWS (BILATERAL) Referring clinician's provided indication for this examination in Epic: Outside Radiology Order; knee pain COMPARISON: None FINDINGS: Left knee: No fracture. Normal alignment. Right knee: No fracture. Normal alignment. Bilateral advanced medial compartment osteoarthritis. Bilateral advanced patellofemoral compartment osteoarthritis. No joint effusion. Procedure Note Avelino Alamo MD, REGINA - 03/15/2025 XR KNEE 4 OR MORE VIEWS (BILATERAL) Referring clinician's provided indication for this examination in Epic:Outside Radiology Order; knee pain COMPARISON: None FINDINGS: Left knee: No fracture. Normal alignment. Right knee: No fracture. Normal alignment. Bilateral advanced medial compartment osteoarthritis. Bilateral advancedpatellofemoral compartment osteoarthritis. No joint effusion. IMPRESSION: No fracture or dislocation. Sandy Esposito DO IMG XR LOWER EXTREMITY Final Result documented in this encounter Visit Diagnoses Diagnosis Pain in both knees, unspecified chronicity- Primary Pain in both knees, unspecified chronicity documented in this encounter Care Teams Frankfurter Inspector Relationship Specialty Start Date End Date Sandy Esposito DO [address] [place] [phone] PCP - General Family Medicine 03/19/23 documented as of this encounter Additional Source Comments The information contained in this document represents components of the legal health record. It is not the complete legal health record.[facility]
--- OUTSIDE RECORDS SUMMARY | 2025-04-21 19:24 | XMS_ITS | Encounter Summary ---
Author Organization [employer] Address [address] [facility] 7t [place] [address] Care Team Providers Care Clinical Nurse Educator Name Role Phone Cindy Cabrera Primary Care Provider [phone] Sandy Esposito DO Primary Care Provider [phone] Reason for Visit * Reason Comments Med Refill Encounter Details Date Type Department Care Team (Late st Contact Info) Description 06/18/2022 Telephone [facility] MEDICINE [address] [place], [place] [phone] [facility] [address] [place], [place] [phone] Med Refill Social History Tobacco Use Types [...] eruption documented in this encounter Care Teams Clinical Nurse Educator Relationship Specialty Start Date End Date Cindy Cabrera FNP [address] [place] [address] PCP - General Family Medicine 06/14/22 08/14/22 Sandy Esposito DO [address] [place] [address] PCP - General Family Medicine 08/15/22 documented as of this encounter
--- OUTSIDE RECORDS SUMMARY | 2025-04-21 19:24 | XMS_ITS | Clinical Summary ---
Author Organization [facility] Address [address] [address] Phone Care Team Providers Care Hog Man Name Role Phone Vaibhav Sandy Primary Care [...] depression 07/06/2010 Venous insufficiency (chronic) (peripheral) 05/2000 Encounters Date Type Department Care Team Description 03/20/2025 Plan of Care Documentation [facility] [address] [place] [address] 03/13/2025 2:39 PM EDT - 03/13/2025 11:59 PM EDT Hospital Encounter [facility], X-Ray - [address] [address] Sandy Esposito, Discharge Disposition: Home or Self Care 03/13/2025 2:03 PM EDT - 03/13/2025 2:38 PM EDT Hospital Encounter [address] [address] Sandy Esposito DO Discharge Disposition: Home or Self Care 03/13/2025 1:00 PM EDT Office Visit [facility] [address] [place] [address] Sandy Esposito DO Jakubowski, Stacey, OT Lymphedema (Primary Dx) 03/13/2025 Transcribe Orders [facility] Main [address] [place] [phone] Sandy Esposito DO Essential hypertension, malignant (Primary Dx); Body mass index (BMI) 40.0-44.9, adult; Screening for diabetes mellitus 03/11/2025 Transcribe Orders [facility] Department [address] [place] [phone] Sandy Esposito DO Pain in both knees, unspecified chronicity (Primary Dx) 03/02/2025 Telephone [facility] [address] [place] [address] Patria Beltrán, SILVINO 03/02/2025 Telephone [facility] [address] [place] [address] Patria Beltrán, SILVINO 02/25/2025 Telephone [facility] [address] [place] [address] Patria Beltrán OT 02/16/2025 Transcribe Orders [facility] [address] [place] [address] Sandy Esposito, DO Encounter for rehabilitation (Primary Dx) 02/04/2025 Transcribe Orders [facility] [address] [place] [address] Sandy Esposito, DO Encounter for rehabilitation (Primary Dx) from Last 3 Months Immunizations Immunization Administration Dates Next Due DT [...] Health Maintenance Due Date Last Done Comments DEPRESSION SCREENING 1963 HEPATITIS C SCREENING 1969 MAMMOGRAM 1991 COLOGUARD 1996 COLONOSCOPY 1996 COLORECTAL CANCER SCREENING 1996 FIT TEST 1996 FOBT 1996 SIGMOIDOSCOPY 1996 VIRTUAL COLONOSCOPY 1996 ZOSTER VACCINES (2 of 3) 02/10/2013 12/16/2012 OSTEOPOROSIS SCREENING INITIAL (ONE-TIME) 2016 BLOOD PRESSURE 07/11/2024 01/09/2024 INFLUENZA VACCINE (#1) 2024 , 04/13/2021, 04/13/2021, Additional history exists COVID-19 VACCINE (3 - 2024- season) 2025 05/27/2021, 08/11/2020 Adult Td,Tdap Booster 03/10/2025 03/10/2015 CREATININE LEVEL 03/13/2026 03/13/2025 POTASSIUM LEVEL 03/13/2026 03/13/2025 RSV VACCINE (1 - 1-dose 75+ series) 2026 LIPID PANEL 03/13/2030 03/13/2025, 09/19/2023 PNEUMOCOCCAL VACCINES (50+ years) Completed 04/13/2021, 02/14/2020 SMOKING STATUS SCREENING (Once After 26 Yrs) Completed 06/15/2023 HEPATITIS A [...] this topic Medical Devices Not on file Procedures Procedure Name Priority Date/Time Associated Diagnosis Comments XR KNEE 4 OR MORE VIEWS (BILATERAL) Routine 03/13/2025 2:57 PM EDT Pain in both knees, unspecified chronicity MICROALBUMIN/CREATIN INE RATIO, RANDOM URINE Routine 03/13/2025 2:32 PM EDT Essential hypertension, malignant Body mass index (BMI) 40.0-44.9, adult Screening for diabetes mellitus VITAMIN B12 Routine 03/13/2025 2:29 PM EDT Essential hypertension, malignant Body mass index (BMI) 40.0-44.9, adult Screening for diabetes mellitus FOLATE Routine 03/13/2025 2:29 PM EDT Essential hypertension, malignant Body mass index (BMI) 40.0-44.9, adult Screening for diabetes mellitus CBC Routine 03/13/2025 2:29 PM EDT Essential hypertension, malignant Body mass index (BMI) 40.0-44.9, adult Screening for diabetes mellitus BASIC METABOLIC PANEL (BMP) Routine 03/13/2025 2:29 PM EDT Essential hypertension, malignant Body mass index (BMI) 40.0-44.9, adult Screening for diabetes mellitus HEMOGLOBIN A1C Routine 03/13/2025 2:29 PM EDT Essential hypertension, malignant Body mass index (BMI) 40.0-44.9, adult Screening for diabetes mellitus LFTS (HEPATIC PANEL) Routine 03/13/2025 2:29 PM EDT Essential hypertension, malignant Body mass index (BMI) 40.0-44.9, adult Screening for diabetes mellitus THYROID STIMULATING HORMONE (TSH) Routine 03/13/2025 2:29 PM EDT Essential hypertension, malignant Body mass index (BMI) 40.0-44.9, adult Screening for diabetes mellitus LIPID PANEL Routine 03/13/2025 2:29 PM EDT Essential hypertension, malignant Body mass index (BMI) 40.0-44.9, adult Screening for diabetes mellitus 25-OH VITAMIN D Routine 03/13/2025 2:29 PM EDT Essential hypertension, malignant Body mass index (BMI) 40.0-44.9, adult Screening for diabetes mellitus FREE T4 Routine 03/13/2025 2:29 PM EDT Essential hypertension, malignant Body mass index (BMI) 40.0-44.9, adult Screening for diabetes mellitus from Last 3 Months Results * XR KNEE 4 OR MORE [...] joint effusion. IMPRESSION: No fracture or dislocation. us Sandy Esposito DO IMG XR LOWER EXTREMITY Final Result * (ABNORMAL) Microalbumin/creatinine ratio, random urine (03/13/2025 2:32 PM EDT) URINE MICROALBUMIN 5.7(H) 0 - 2.3 mg/dL [facility] URINE CREATININE 90 mg/dL DIRECTOR WORK [facility] MICROALB/CRE RATIO 63.3(H) 0 - 20 mg/g Cre [facility] Urine (Urine) 03/13/2025 2:3 2 PM EDT 03/13/2025 2:34 PM EDT us Sandy Esposito DO LAB URINE ORDERABLES Final R esult Performing Organization Address [facility] Co de Phone Number [address] [address] * (ABNORMAL) LFTs (hepatic panel) (03/13/2025 2:29 PM EDT) ALKALINE PHOSPHATASE 77 39 - 117 U/L [facility] TOTAL BILIRUBIN 0.4 0.0 - 1.2 mg/dL [facility] DIRECT BILIRUBIN 0.1 0.0 - 0.2 mg/dL [facility] Bilirubin (Indirect) NOT CALCULATED 0 - 1.5 mg/dL [facility] AST 19 0 - 37 U/L [facility] ALT 10 0 - 40 U/L [facility] TOTAL PROTEIN 8.5(H) 6.5 - 8.0 g/dL [facility] ALBUMIN 4.4 3.9 - 4.8 g/dL [facility] GLOBULIN 4.1 1 - 4.8 g/dL [facility] A/G Ratio 1.07 1.00 - 4.80 RATIO [facility] Blood 03/13/2025 2:29 PM EDT 03/13/2025 2:42 PM EDT Sandy Esposito DO LAB BLOOD BKR ORDERABLES Fin al Result [address] [address] * (ABNORMAL) 25-OH vitamin D (03/13/2025 2:29 PM EDT) 25 OH VIT D (TOTAL) 20(L) 30 - 60 ng/mL [facility] Blood 03/13/2025 2:29 PM EDT 03/13/2025 2:42 PM EDT us Sandy Esposito DO LAB BLOOD BKR ORDERABLES Fin al Result Performing Organization Address [facility] Co de Phone Number [address] [address] * (ABNORMAL) CBC (03/13/2025 2:29 PM EDT) WBC 8.69 4.00 - 11.00 K/uL [facility] RBC 5.02 4.00 - 5.20 M/uL [facility] HGB 13.2 12.0 - 16.0 g/dL [facility] HCT 44.1 36.0 - 46.0 % [facility] PLT 286 150 - 450 K/uL [facility] MCV 87.8 80.0 - 100.0 fL [facility] MCH 26.3(L) 27.0 - 31.0 pg [facility] MCHC 29.9(L) 32.0 - 36.0 g/dL [facility] RDW 16.3(H) 11.5 - 14.5 % [facility] MPV 10.4 8.4 - 12.0 fL [facility] NRBC 0.00 0.00 /100 WBCs [facility] ABSOLUTE NRBC 0.00 0.00 K/uL [facility] Blood 03/13/2025 2:29 PM EDT 03/13/2025 2:42 PM EDT us Sandy Esposito DO LAB BLOOD BKR ORDERABLES Fin al Result Performing Organization Address [facility]/ZIP Co de Phone Number [address] [address] * (ABNORMAL) TSH (03/13/2025 2:29 PM EDT) TSH 6.08(H) 0.27 - 4.20 uIU/mL [facility] Blood 03/13/2025 2:29 PM EDT 03/13/2025 2:42 PM EDT us Sandy Vaibhav DO LAB BLOOD BKR ORDERABLES Fin al Result Performing Organization Address City/[facility]/ZIP Co de Phone Number [address] [address] * Free T4 (03/13/2025 2:29 PM EDT) FREE T4 1.0 0.9 - 1.7 ng/dL [facility] Blood 03/13/2025 2:29 PM EDT 03/13/2025 2:42 PM EDT Sandy Vaibhav DO LAB BLOOD BKR ORDERABLES Fin al Result Performing Organization Address [facility]/ZIP Co de Phone Number [address] [address] * (ABNORMAL) Hemoglobin A1c (03/13/2025 2:29 PM EDT) HEMOGLOBIN A1C 6.0(H) 4.3 - 5.8 % [facility] Blood 03/13/2025 2:29 PM EDT 03/13/2025 2:43 PM EDT Sandy Castroshayymorteza DO LAB BLOOD BKR ORDERABLES Fin al Result Performing Organization Address City/[facility]/ZIP Co de Phone Number [address] [address] * (ABNORMAL) Folate (03/13/2025 2:29 PM EDT) FOLIC ACID 3.5(L) 4.2 - 19.9 ng/mL [facility] Blood 03/13/2025 2:29 PM EDT 03/13/2025 2:42 PM EDT SandyBanner LAB BLOOD BKR ORDERABLES Fin al Result Performing Organization Address City/[facility]/ZIP Co de Phone Number [address] [address] * Vitamin B12 (03/13/2025 2:29 PM EDT) Pathologist [facility] VITAMIN B12 305 232 - 1,245 pg/mL [facility] Blood 03/13/2025 2:29 PM EDT 03/13/2025 2:42 PM EDT [facility] LAB BLOOD BKR ORDERABLES Fin al Result Performing Organization Address [facility] Co de Phone Number [address] [address] * (ABNORMAL) Lipid panel (03/13/2025 2:29 PM EDT) HDL 42 mg/dL [facility] Comment: Interpretation <40 mg/dL: Low HDL cholesterol (major risk factor for CHD) Greater than or equal to 60 mg/dL: High HDL cholesterol ( negative risk factor for CHD) HDL - cholesterol is affected by a number of factors, e.g. smoking, excerise, hormones, sex and age. CHOLESTEROL 129 0 - 240 mg/dL [facility] TRIGLYCERIDES 169(H) 30 - 160 mg/dL [facility] LDL 53 50 - 129 mg/dL [facility] Comment: LDL levels in terms of risk for coronary heart disease: <100 mg/dL: Optimal 100-129 mg/dL: Near or above optimal 130-159 mg/dL: Borderline high 160-189 mg/dL: High >190 mg/dL: Very High CARDIAC RISK RATIO 3.1(L) 3.3 - 4.4 [facility] Blood 03/13/2025 2:29 PM EDT 03/13/2025 2:42 PM EDT Sandy Esposito DO LAB BLOOD BKR ORDERABLES Fin al Result Performing Organization Address [facility]/ZIP Co de Phone Number [address] [address] * (ABNORMAL) Basic metabolic panel (03/13/2025 2:29 PM EDT) SODIUM 142 133 - 146 mmol/L [facility] CHLORIDE 104 96 - 108 mmol/L [facility] POTASSIUM 3.8 3.3 - 5.1 mmol/L [facility] CO2 25 21 - 35 mmol/L [facility] BUN 14 6 - 19 mg/dL [facility] CREATININE 1.30 0.5 - 1.5 mg/dL [facility] GLUCOSE 91 70 - 99 mg/dL [facility] CALCIUM 11.0(H) 8.4 - 10.3 mg/dL [facility] EGFR 43(L) >59 mL/min/1.7 3m2 [facility] Comment:Estimated glomerular filtration rate calculated using the CKD-EPI refit equation. ANION GAP 17 10 - 20 mmol/L [facility] Blood 03/13/2025 2:29 PM EDT 03/13/2025 2:42 PM EDT Sandy Esposito LAB BLOOD BKR ORDERABLES Fin al Result Performing Organization Address [facility]/ZIP Co de Phone Number [address] [address] from Last 3 Months Insurance MEDICARE PART A & B [address] [place], [place] [address]HEALTH MEDICARE PART A & [facility] [place] [facility] [facility] [place] PART [place] Care Teams Hog Man Relationship Specialty Start Date End Date Sandy Esposito DO [address] [place] [address] PCP - General Family Medicine 03/19/23 Additional Source Comments The information contained in this document represents components of the legal health record. It is not the complete legal health record.[facility]
--- OUTSIDE RECORDS SUMMARY | 2025-04-21 19:24 | XMS_ITS | Encounter Summary ---
Author Organization [employer] Address [address] [facility] 7t [place] [address] Care Team Providers Care Data Migration Consultant Name Role Phone Sandy Esposito DO Primary Care Provider [phone] Reason for Visit * Reason Comments Med Refill Encounter Details Date Type Department Care Team ([facility] st Contact Info) Description 11/18/2024 Refill [facility] MEDICINE [address] [place], [place] [phone] Sandy Esposito DO [address] [place] [address] Right hip pain Social History Tobacco Use Types Packs/Day Years [...] housing situation today? I have mercedes jacob 12/18/[address] you li ve. Do you have problems with any of the following? None of the above 12/18/2023 Food Insecurity Answer Date Recorded Within the past 12 months, y ou worried that your food would run out before you got money to buy more: Never True 12/18/2023 Within the past 12 months,th e food you bought just didn't last and you didn't have enough money to get more: Never True Transportation Answer Date Recorded In the past 12 months, has l ack of transportation kept you from medical appts, meetings, work or from getting things needed for daily living? No 12/18/2023 Utilities Answer Date Recorded In the past 12 months, has t he electric, gas, oil or water company threatened to shut off services in your home? No 12/18/2023 Depression Answer Date Recorded Patient Health Questionnaire-2 Score 0 12/18/2023 Internet Access Answer Date Recorded Internet Access Q1 Yes 01/25/2024 Internet Access Q2 Not on file 01/25/2024 Comments Unknown Sex and Gender Information Value Date Recorded Sex Assigned at Female 03/27/2022 10:30 AM EDT Legal Sex Female 10:30 AM EDT Gender Identity Female 03/27/2022 10:30 AM EDT Sexual Orientation Straight 03/27/2022 10 :30 AM EDT documented as of this encounter Plan of Treatment Not on file documented as of this encounter Visit Diagnoses Diagnosis Right hip pain Pain in joint, pelvic region and thigh documented in this encounter Additional Health Concerns Assessment Noted Time PHQ-9 Depression Total Score: 2 12/18/19 24 11:47 AM EDT documented as of this encounter Care Teams Data Migration Consultant Relationship Specialty Start Date End Date Sandy Esposito DO [address] [place] [address] PCP - General Family Medicine 08/15/22 documented as of this encounter
--- OUTSIDE RECORDS SUMMARY | 2025-04-21 19:24 | XMS_ITS | Encounter Summary ---
Author Organization [employer] Address [address] [facility] 7t [place] [address] Care Team Providers Care Graphic Engineer Name Role Phone Sandy Esposito DO Primary Care Provider [phone] Reason for Visit * Reason Onset Date Comments Durable Medical Equipment 11/03/2022 Encounter Details Date Type Department Care Team ([facility] st Contact Info) Description 11/03/2022 Telephone [facility] MEDICINE [address] [place] [address] Sandy Esposito DO [address] [place] [address] Durable Medical Equipment Social History Tobacco Use Types Packs/Day Years [...] Orientation Straight 03/27/2022 10 :30 AM EDT COVID-19 Exposure Response Date Recorded In the last 10 days, have yo u been in contact with someone who was confirmed or suspected to have Coronavirus/COVID-19? No / Unsure 10/27/2022 8:52 AM EDT documented as of this encounter Miscellaneous Notes * Telephone Encounter - Brenda Rosa LPN - 11/03/2022 2:43 PM EDT Please read message below and advise , if agreed please provide DX for request * Telephone Encounter - Jelani Nielson - 11/03/2022 2:17 PM EDT Tc from Manju pt granddaughter and also second time worker primary care nurse practitioner requesting a Rollator for patient. Please contact Manju at [phone] documented in this encounter Plan of Treatment Not on file documented as of this encounter Visit Diagnoses Not on filedocumented in this encounter Additional Health Concerns Assessment Noted Time PHQ-9 Depression Total Score: 0 08/16/19 23 9:19 AM EDT documented as of this encounter Care Teams Graphic Engineer Relationship Specialty Start Date End Date Sandy Esposito DO [address] [place] [address] PCP - General Family Medicine 08/15/22 documented as of this encounter
--- OUTSIDE RECORDS SUMMARY | 2025-04-21 19:24 | XMS_ITS | Clinical Summary ---
Author Organization [employer] Address [address] [facility] [address] [place] [address] Care Team Providers Care Grave Cleaner Name Role Phone Vaibhav Sandy Primary Care Provider [phone]- [phone] Allergies Active Allergy Reactions Criticality Noted Date Comments Bupropion 07/24/2022 Other reaction(s): Irritable Other reaction(s): Irritable Other reaction(s): Irritable Penicillin G 08/15/2022 Penicillins 04/10/2016 Other reaction(s): Unknown Bupropion Hcl 07/24/2022 Medications simethicone (Mylicon) 80 MG chewable tablet Chew 80 mg if needed in the morning, at noon, and at bedtime. Active Blood Pressure kit 1 each 1 (one) time per week. 1 kit 12/18/19 24 Active ketoconazole (Nizoral) 2 % shampooIndicati ons:Scalp psoriasis Apply topically 2 (two) times a week. 240 mL 3 12/31/19 24 Active betamethasone, augmented, (Diprolene) 0.05 % lotionIndicatio ns:Scalp psoriasis Apply topically 2 times daily. 60 mL 12/28/19 24 Active betamethasone, augmented, (Diprolene) 0.05 % ointmentIndicat ions:Venous stasis dermatitis Apply topically 2 times daily. 50 g 12/28/19 24 Active amLODIPine (Norvasc) 5 MG tabletIndicatio ns:Essential hypertension TAKE 1 TABLET BY MOUTH EVERY DAY 90 tablet 1 12/03/19 25 Active metoprolol succinate XL (Toprol-XL) 50 MG 24 hr tabletIndicatio ns:Essential hypertension TAKE 1 TABLET BY MOUTH EVERY DAY 90 tablet 1 12/17/19 25 Active rosuvastatin (Crestor) 40 MG tablet TAKE 1 TABLET BY MOUTH EVERY DAY 90 tablet 1 02/12/20 25 Active traMADol (Ultram) 50 MG tabletIndicatio ns:Right hip pain Take 1 tablet (50 mg) by mouth every 12 (twelve) hours if needed for severe pain for up to 28 days. Do not start before February 13, 2025. 56 tablet 02/14/20 25 Active fluticasone (Flonase) 50 MCG/ACT nasal spray INSTILL 2 SPRAYS IN EACH NOSTRIL ONCE DAILY 48 g 03/05/20 25 Active gabapentin (Neurontin) 300 MG capsuleIndicati ons:Other chronic pain Take 1 capsule (300 mg) by mouth 3 times daily. 90 capsule 3 03/10/20 25 Active lisinopril 10 MG tablet Take 1 tablet (10 mg) by mouth in the morning. 90 tablet 3 03/10/20 25 Active nystatin (Mycostatin) 687983 UNIT/GM powder Apply topically 2 times daily. 240 g 3 03/10/20 25 Active tiZANidine (Zanaflex) 2 MG tablet TAKE 1 TABLET BY MOUTH EVERY 8 HOURS NEEDED FOR MUSCLE SPASMS DO NOT EXCEED 3 TABLETS /24 HOURS 40 tablet 3 03/10/20 25 Active acetaminophen (Tylenol 8 Hour) 650 MG ER tablet Take 1 tablet (650 mg) by mouth every 8 (eight) hours if needed for mild pain. Do not crush, chew, or split. 60 tablet 2 03/10/20 25 026 Active Diclofenac Sodium 1 % gel Apply 2 g topically if needed in the morning, at noon, in the evening, and at bedtime (pain). 150 g 3 03/10/20 25 Active levothyroxine (Synthroid, Levoxyl) 50 MCG tablet Take 1 tablet (50 mcg) by mouth before breakfast. 90 tablet 3 03/18/20 25 Active cholecalciferol (Vitamin D-3) 50 MCG (2000 UT) capsule Take 1 capsule (50 mcg) by mouth Once per day. 90 capsule 3 03/18/20 25 Active folic acid (Folvite) 1 MG tablet Take 1 tablet (1 mg) by mouth Once per day. 90 tablet 3 03/18/20 25 Active cetirizine (ZyrTEC) 10 MG tablet Take 1 tablet (10 mg) by mouth Once per day. 30 tablet 3 5 11:56 AM EST 04/21/20 25 Active azelastine (Astelin) 0.1 % nasal spray Administer 2 sprays into each nostril 2 times daily. Use in each nostril as directed 30 mL 5 11:56 AM EST 04/21/20 Active sulfamethoxazol e-trimethoprim (Bactrim) 200-40 MG/5ML suspension Take 20 mL (160 mg of trimethoprim) by mouth every 12 (twelve) hours for 5 days. 200 mL 5 11:56 AM EST 04/21/20 25 Active cetirizine (ZyrTEC) 10 MG tablet Take 1 tablet (10 mg) by mouth Once per day. 30 tablet 11 04/15/20 24 Discontinued(R eorder (will not trigger notification to Pharmacy)) clotrimazole (Lotrimin) 1 % cream Apply topically if needed in the morning and at bedtime (breast rash) for up to 28 days. 60 g 2 03/10/20 sulfamethoxazol e-trimethoprim (Bactrim DS) 800-160 MG tablet Take 1 tablet by mouth 2 times daily for 5 days. 10 tablet 04/21/20 Discontinued(A lternate therapy) Active Problems Problem Noted Date Diagnosed Date Long-term current use of opiate analgesic 2024 Recurrent UTI 02/13/2024 Assessment & Plan (02/13/2024 11:20 AM EDT): Do not hold urine UA and culture done BMP ordered Patient will be contacted with results Urology referral for recurrent resistant UTIs Lymphedema 09/19/2023 Assessment & Plan (09/19/2023 2:04 PM EDT): With chronic discomfort -referred to lymphedema clinic for eval as requested History of sepsis 09/19/2023 History of osteomyelitis 09/26/2022 Nephrolithiasis 08/15/2022 BMI 40.0-44.9, adult ([facility]) 08/15/2022 Varicose veins 08/15/2022 Psoriasis 08/15/2022 Chronic low back pain 08/15/2022 Vitamin B12 deficiency 08/15/2022 Osteoarthritis 08/15/2022 Stage 3 chronic kidney disease ([facility]) 019 Hyperlipidemia 07/11/2018 Assessment & Plan (09/19/2023 2:03 PM EDT): Unable to tolerate atorvastatin tablet -change lipitor to crestor nightly -check lipids prior to next visit Prediabetes 07/11/2018 Microalbuminuria 07/11/2018 Tobacco dependence 06/06/2018 Chronic pain syndrome 03/07/2017 Assessment & Plan (11/21/2023 7:35 AM EDT): Patient participated in her first chronic pain group, around the topic of chair yoga. - her utox and pill counts were as expected - followup in 1-2 months or sooner with PCP as needed Essential hypertension 03/07/2017 Assessment & Plan (02/13/2024 11:19 AM EDT): Patient reports her blood pressure has being high at home, today she is clinically asymptomatic (denies chest pain, SOB, dizziness, blurry vision, weakness, numbness...) I advise low Na diet and weight reduction C/w lisinopril 10mg daily I added today amlodipine 5mg daily RTC 2 weeks nurse visit with BP log plan is BP is not at goal possibly increase amlodipine to 10mg Assessment & Plan (01/17/2024 6:32 PM EDT): BP checked manually 144/85 Possible reactive to current SP discomfort -Monitor at home BP and to f w PCP and bring readings at her next apt Assessment & Plan (09/19/2023 2:03 PM EDT): BP elevated, asx -start home BP monitoring -cont lisinopril and toprol daily -BP check with me in 1 mos -check basic labs -review optho next visit History of depression 07/06/2010 Venous insufficiency (chronic) (peripheral) 05/2000 Resolved Problems Problem Noted Date Diagnosed Date Resolved Date Hypercalcemia 02/13/2024 03/10/2025 UTI symptoms 01/24/2024 04/15/2024 Assessment & Plan (01/24/2024 1:45 PM EDT): She has residual Sx. Due to patient having repeated UTIs in the past, I will give 7 days of Bactrim. Increase fluid intake, re consult prn fever or worsening of Sx. Suprapubic pain 01/17/2024 04/15/2024 Assessment & Plan (01/17/2024 6:32 PM EDT): Currently w SP pressure sensation w no other complaints h/o urosepsis with recurrent UTIs -last ATB use in 09/2023 Bactrim BID for 7 days -chem 09/2023 wnl -ucx 09/26/2023 Enterobacter aerogenesQuant 10,000 to 50,000 cfu/mL Enterobacter aerogenes: Ceftriaxone >=64(R) Enterobacter aerogenes: Gentamicin <=1(S) Enterobacter aerogenes: Levofloxacin 1(I) Enterobacter aerogenes: Nitrofurantoin 128(R) Enterobacter aerogenes: Trimethoprim/Sulfamethoxazole <=20(S) -urine dipstick today: cloudy, blood + nitrates + and LE many -UA w Reflex cx-call pt w results -referred for renal/bladder US to r/o obstruction -start bactrim BID px for now for 3 days -will consdier extending tx for 7 days but will check results to see if I can keep bactrim or need to change ATB -f w PCP -alarm signs and symptoms discussed w pt Spinal abscess (CMS/HCC) 08/15/2022 UTI (urinary tract infection) 08/15/2022 04/15/2024 Noncompliance with treatment 08/06/2019 08/15/2022 Encounters Date Type Department Care Team Description 04/21/2025 9:20 AM EST Office Visit [facility] [address] [place] [phone] Kendall Harp MD Dysuria; Nasal congestion; Essential hypertension; Cough in adult patient 04/21/2025 Travel 03/18/2025 Telephone [facility] [place] [address] Sandy Esposito DO Results 03/18/2025 Refill [facility] [place] [address] Sandy Esposito DO 03/10/2025 11:00 AM EDT Telemedicine [facility] [address] Sandy Esposito DO Essential hypertension (Primary Dx); Other hyperlipidemia; Prediabetes; Lymphedema; Chronic pain of both knees; Recurrent UTI; Intertrigo; Healthcare maintenance; Breast cancer screening by mammogram; Screening for colon cancer; Body mass index (BMI) 40.0-44.9, adult (HCC); Encounter for screening for diabetes mellitus; Other chronic pain; Post-menopausal 03/10/2025 Telephone [facility] [place] [address] Sandy Esposito DO 03/10/2025 Travel 03/09/2025 Telephone [place] [address] Sandy Esposito DO Call Back Request 03/05/2025 Telephone [place] [address] Sandy Esposito DO Chart Prep 03/04/2025 Refill [facility] [place] [address] Sandy Esposito DO 03/03/2025 Patient Outreach [place] [address] Sandy Esposito DO Pre-visit Planning (SDOH screening negative and tobacco screening negative) 02/24/2025 Travel 02/24/2025 Telephone [place] [address] Sandy Esposito DO Appointment Request 02/13/2025 Orders Only [facility] [place] [address] Sandy Esposito DO Lymphedema (Primary Dx) 02/10/2025 Refill [facility] [address] [facility] [address] Sandy Esposito DO Right hip pain 02/10/2025 Refill [facility] [address] [place], [place] [phone] Sandy Esposito DO 02/06/2025 11:00 AM EDT Telemedicine [facility] [address] [place], [place] [phone] Polina Tate RN Long-term current use of opiate analgesic 01/27/2025 Telephone [facility] [address] [place], [place] [phone] Sandy Esposito DO Referral from Last 3 Months Immunizations Immunization Administration Dates Next Due DT (pediatric) 06/06/2010 Influenza High-dose Quadriva lent Preservative Free 05/02/2023 Influenza Injectable Quadriv alant Preservative Free IIV4 MDCK 02/06/2017 Influenza Quadrivalent Adjuvanted 04/13/2021 Influenza Whole 05/06/2007 Influenza injectable quadriv alent IIV4 with preservative 04/10/2016 Influenza, High Dose Seasona l, Preservative Free 02/25/2019 Influenza, IIV3, injectable 04/13/2021,0 02/14/2020,02/25/2019,03/02,02/06/2017,04/10/2016,03/06/2015 ,04/03/2014,05/25/2013,02/06/2012,01/2012,06/06/2010,06/06/2010 Influenza, seasonal, injecta ble, preservative free 02/14/2020,03/02/2018,03/06/2015,04/03 Elizabeth SARS-CoV-2 Vaccination 08/11/2020 Pfizer Covid-19 Vaccine 12+ 05/27/2021 Pneumococcal Conjugate PCV 13 02/14/2020 Pneumococcal Polysaccharide PPSV23 04/13/2021 Tdap 03/10/2015 Zoster, live 12/16/2012 Social History Tobacco Use Types [...] Orientation Straight 03/27/2022 10 :30 AM EDT Last Filed Vital Signs Vital Sign Reading Time Taken Comments Blood Pressure 176/83 04/21/2025 9:14 AM EST Pulse 87 04/21/2025 9:14 AM EST Temperature 36.7 C (98 F) 04/21/2025 9:14 AM EST Respiratory Rate 20 04/21/2025 9:14 AM EST Oxygen Saturation 97% 04/21/2025 9:14 AM EST Inhaled Oxygen Concentration - - Weight 103 kg (228 lb) 04/21/2025 9:14 AM EST Height 160 cm (5' 3 ) 02/13/2024 10:35 AM EDT Body Mass Index 40.39 02/13/2024 10:35 AM EDT Plan of Treatment Health Maintenance Due Date Last Done Comments CT Colonography 1951 Colonoscopy 1951 Colorectal Cancer Screening 1950 FIT DNA/Cologuard 1951 FIT 1951 FOBT 1950 Sigmoidoscopy 1951 Alcohol/Substance Use Screening 1963 RSV Patients and Patients Aged 60 years or older (1 - Risk 50-74 years 1-dose series) 2001 Zoster Vaccines (2 of 3) 02/10/2013 12/16/2012 Mammogram 11/26/2022 11/26/2020 Depression Screening 12/17/2024 12/18/2023, 12/18/19 24 COVID-19 Vaccine (2 - season) 2025 05/27/2021, 08/11/2020 Influenza Vaccine (#1) 2025 , 04/13/2021, 04/13/2021, Additional history exists DTaP/Tdap/Td Vaccines (2 - Td or Tdap) 03/10/2025 03/10/2015, 06/06/2010 SDOH Screening 03/03/2026 03/03/2025 Diabetes: Hemoglobin A1C 03/13/2026 025, 09/19/2023, 10/25/2021 Tobacco Screening 04/21/2026 04/21/2025 Lipid Panel 09/18/2028 09/19/2023, 10/25/2021 Pneumococcal Vaccine: 50+ Years Completed 04/13/2021, 02/14/2020 Hepatitis C Screening Completed 09/19/2023 HIB Vaccines Aged Out No longer eligi ble based on patient's age to complete this topic HPV Vaccines Aged Out No longer eligi ble based on patient's age to complete this topic Hepatitis A Vaccines Aged Out No long er eligible based on patient's age to complete this topic Hepatitis B Vaccines Aged Out No long er eligible based on patient's age to complete this topic IPV Vaccines Aged Out No longer eligi ble based on patient's age to complete this topic Meningococcal B Vaccine Aged Out No l onger eligible based on patient's age to complete this topic Meningococcal Vaccine Aged Out No elmira carlos eligible based on patient's age to complete this topic RSV under 20 months Aged Out No longe r eligible based on patient's age to complete this topic Rotavirus Vaccines Aged Out No longer eligible based on patient's age to complete this topic Procedures Procedure Name Priority Date/Time Associated Diagnosis Comments POCT URINALYSIS DIPSTICK Routine 04/21/2025 9:58 AM EST Dysuria POCT INFLUENZA B (ID NOW RAPID MOLECULAR) Routine 04/21/2025 9:44 AM EST Cough in adult patient POCT INFLUENZA A (ID NOW RAPID MOLECULAR) Routine 04/21/2025 9:43 AM EST Cough in adult patient POCT RAPID COVID ANTIGEN Routine 04/21/2025 9:42 AM EST Cough in adult patient HEMOGLOBIN A1C Routine 09/19/2023 1:09 PM EDT Essential hypertension Other hyperlipidemia Abnormal finding of blood chemistry, unspecified LIPID PANEL, STANDARD Routine 09/19/2023 1:09 PM EDT Essential hypertension Other hyperlipidemia HEPATITIS C AB W/REFL TO HCV RNA, QN, PCR Routine 09/19/2023 1:07 PM EDT Essential hypertension Other hyperlipidemia HM MAMMOGRAPHY Routine 11/26/2020 from Last 3 Months or Most Recently Relevant to Health Maintenance Results * (ABNORMAL) POCT urinalysis dipstick manually resulted (CPT 94620) (04/21/2025 9:58 AM EST) Color, UA Yellow Clarity, UA Clear Glucose, [...] NOW Rapid Molecular) (04/21/2025 9:44 AM EST) [facility] Influenza B Negative Negative, Indeterminate [facility] Swab 04/21/2025 9:44 AM EST us Kendall Harp MD POINT OF CARE TEST ENTER/EDIT OR DERABLES Final Result Performing Organization Address [facility] Co de Phone Number [facility] [address] [place] [phone] * Influenza A (ID NOW Rapid Molecular) (04/21/2025 9:43 AM EST) [facility] Influenza A Negative Negative, Indeterminate [facility] Swab 04/21/2025 9:43 AM EST us Kendall Harp MD POINT OF CARE TEST ENTER/EDIT OR DERABLES Final Result Performing Organization Address [facility] de Phone Number [facility] [address] [place] [phone] * POCT Rapid COVID Ag (04/21/2025 9:42 AM EST) [facility] Rapid COVID Ag Negative Swab 04/21/2025 9:42 AM EST us Kendall Harp MD POINT OF CARE TEST ENTER/EDIT OR DERABLES Final Result * (ABNORMAL) Lipid Panel, Standard (09/19/2023 1:09 PM EDT) [facility] Triglycerides 133 <150 mg/dL [facility] Comment:Desirable Triglyceri de: less than 150 mg/dLBorderline High Triglyceride 150-199 mg/dLHigh Triglyceride: 200-499 mg/dLVery High Triglyceride: greater than or equal to 5OO mg/dL Cholesterol 144 <200 mg/dL [facility] Comment:Desirable Cholestero l: less than 200 mg/dLBorderline High Cholesterol: 200-239 mg/dLHigh Cholesterol: greater than 239 mg/dL LDL Cholesterol Calculated 81 <100 mg/dL [facility] Comment:Desirable LDL: less than 100 mg/dLNear Optimal/Above Optimal LDL: 110- 129 mg/dLBorderline High LDL: 130-159 mg/dLHigh LDL: 160-189 mg/dLVery High LDL: greater than or equal to 190 mg/dL HDL Cholesterol 37(L) >40 mg/dL [facility] Comment:Desirable HDL: great er than 40 mg/dL Note: This HDL assay may give artificially low results in patients with liver disease. Blood Venous blood specimen / Unknown 09/19/2023 1:09 PM EDT 09/19/2023 3:59 PM EDT Sandy Esposito DO LAB BLOOD ORDERABLES Final R esult Performing Organization Address [facility] Co de Phone Number [facility] [address] [place] [phone] * Hepatitis C Antibody with Reflex to HCV, RNA, Quantitative, Real-Time PCR (09/19/2023 1:07 PM EDT) Hepatitis C Antibody Nonreactive Nonreactive [facility] Comment:Antibodies to HCV no t detected; does not exclude early acuteHCV infection. Blood Venous blood specimen / Unknown 09/19/2023 1:07 PM EDT 09/19/2023 3:59 PM EDT Sandy Esposito [employer] LAB BLOOD ORDERABLES Final R esult Performing Organization Address [facility] Co de Phone Number [facility] [address] [place] [phone] * Mammography (11/26/2020) Mammogram Performed Anatomical Region Laterality Modality Other Historical Provider MD HEALTH MAINTENANCE Final Result from Last 3 Months or Most Recently Relevant to Health Maintenance Insurance [facility] STANDARD MEDICARE * Guarantor: Terrie Barakat Account Type Relation to Patient Date of Phone Billing Address Personal/Family Self [place], [place] Care Teams Grave Cleaner Relationship Specialty Start Date End Date Sandy Esposito DO [address] [place] [phone] PCP - General Family Medicine 08/15/22
--- OUTSIDE RECORDS SUMMARY | 2025-04-21 19:24 | XMS_ITS | Encounter Summary ---
Author Organization [employer] Address [address] [facility] [address] [place] [address] Care Team Providers Care Photography Intern Name Role Phone Sandy Esposito DO Primary Care Provider [phone]- [phone] Reason for Visit * Reason Onset Date Comments Med Refill 01/02/2023 Encounter Details Date Type Department Care Team (Late st Contact Info) Description 01/02/2023 Telephone [facility] [address] [place] [address] Sandy Esposito DO [address] [place] [address] Med Refill Social History Tobacco Use Types [...] encounter Miscellaneous Notes * Telephone Encounter - Sandy Dykes LPN - 01/02/2023 11:07 AM EDT Medication was sent to [facility] on 08/22/22 Qty: 90 with 1 refill. * Telephone Encounter - Sophia Byron - 01/02/2023 10:49 AM EDT Tc from pt requesting medication refill on lisinopril 10 MG tablet documented in this encounter Plan of Treatment Not on file documented as of this encounter Visit Diagnoses Not on filedocumented in this encounter Additional Health Concerns Assessment Noted Time PHQ-9 Depression Total Score: 0 08/16/19 23 9:19 AM EDT documented as of this encounter Care Teams Photography Intern Relationship Specialty Start Date End Date Sandy Esposito DO [address] [place] [address] PCP - General Family Medicine 08/15/22 documented as of this encounter
--- OUTSIDE RECORDS SUMMARY | 2025-04-21 19:24 | XMS_ITS | Encounter Summary ---
Author Organization [employer] Address [address] [place] [address] Care Team Providers Care Habilitation Assistant Name Role Phone Vaibhav Sandy Primary Care Provider + [phone] Encounter Details Date Type Department Care Team (Latest Contact Info) Description 04/21/2025 Travel Social History Tobacco Use Types Packs/Day Years [...] your housing situation today? I have mercedes jacbo 03/03/[address] you li [...] documented as of this encounter Care Teams Habilitation Assistant Relationship Specialty Start Date End Date Sandy Esposito DO [address] [place] [address] PCP - General Family Medicine 08/15/22 documented as of this encounter
== END 2025-04-21 10:26 | disposition home or self-care (01) ==
LOC: HO.HHCLNP 10:25
PROVIDERS: Visit Provider Emergency Medicine
DX: R30.0 Dysuria (principal)
CPT/HCPCS: 87086